=== PATIENT | male | born 1955 | race Caucasian/White ===

== ENCOUNTER → 2016-12-17 | Outpatient (REF) | payer OTHER ==
[2016-12-17 13:59] LABS: SQUAMOUS EPITHELIAL CELL URINE NONE SEEN /hpf (SMALL AMT); WBC, URINE 0-1 /hpf (0-3)
[2016-12-17 14:00] LABS: BACTERIA, URINE NONE SEEN; HYALINE CAST, URINE NONE SEEN /lpf (0-1); MICROSCOPIC EXAM PERFORMED
[2016-12-17 14:06] LABS: COMPLEMENT C4 25.3 MG/DL (10-40)
== END ==
LOC: M LAB REF 13:18
PROVIDERS: ATTEND Internal Medicine Nephrology
DX: R31.9 Hematuria, unspecified (principal); R80.9 Proteinuria, unspecified

== ENCOUNTER → 2016-12-22 | Outpatient (CLI) | payer OTHER ==
--- NOTE | 2016-12-22 14:15 | REP ---
RENAL AND BLADDER ULTRASOUND: Real-time sonographic evaluation of the kidneys is performed and demonstrates both kidneys to be normal in size and echotexture, right kidney measuring 12.5 x 7.5 x 5.3 cm and the left kidney 12.7 x 6.0 x 5.5 cm. There is no hydronephrosis bilaterally. Calcified blood vessels are seen in each kidney. There is a cyst in the lower pole of the left kidney 1.2 x 1.2 x 0.7 cm. The urinary bladder demonstrates no mass or calculus. There is impression upon the base of the bladder by an enlarged prostate which measures 5.2 x 4.0 x 6.1 cm, total volume 65.8 mL. The bladder volume prior to voiding is 378 mL, postvoid residual is 25 mL with postvoid residual 7% of the original volume. There are bilateral ureteral jets in the urinary bladder with Doppler color evaluation. IMPRESSION: No hydronephrosis. Small cyst lower pole, left kidney. Enlarged prostate. Mild postvoid residual of the urinary bladder after voiding without other significant finding. Signed by Roberto Newell MD 12/22/2016 03:33 P
== END ==
LOC: M RAD 12:57
PROVIDERS: ATTEND Internal Medicine Nephrology
DX: R31.9 Hematuria, unspecified (principal); R80.9 Proteinuria, unspecified; I10 Essential (primary) hypertension; N13.30 Unspecified hydronephrosis; N28.1 Cyst of kidney, acquired

== ENCOUNTER → 2017-02-04 | Outpatient (REF) | payer OTHER | LOC: M SMT 13:04 | PROVIDERS: ATTEND Nurse Practitioner Women's Health | DX: R31.29 Other microscopic hematuria (principal) ==

== ENCOUNTER → 2017-04-05 | Outpatient (CLI) | payer OTHER ==
[~2017-04-05] MED LIST: FLOM5CAP PO; LISI20TA PO; MULTCAP12 PO; NORCOTAB PO; PROS5TAB PO; SIMV20TA2 PO
[2017-04-05 07:47] LABS: MEAN CORPUSCULAR HEMOGLOBIN 31.9 pg (27.0-33.0); MEAN CORPUSCULAR HGB CONC 33.6 g/dl (32.0-36.5); RED CELL DISTRIBUTION WIDTH 13.1 % (11.5-14.5); WHITE BLOOD COUNT 5.7 K/mm3 (4.0-10.0)
[2017-04-05 08:14] LABS: ANION GAP 7 MEQ/L (8-16); BLOOD UREA NITROGEN 18 MG/DL (7-18); CALCIUM LEVEL 8.8 MG/DL (8.8-10.2); CARBON DIOXIDE LEVEL 25 MEQ/L (21-32); CHLORIDE LEVEL 106 MEQ/L (98-107); CREATININE FOR GFR 0.89 MG/DL (0.70-1.30); GLOMERULAR FILTRATION RATE > 60.0 (>49); GLUCOSE, FASTING 109 MG/DL (80-110); POTASSIUM SERUM 4.2 MEQ/L (3.5-5.1); SODIUM LEVEL 138 MEQ/L (136-145)
== END ==
LOC: M LAB 07:10
PROVIDERS: ATTEND Specialist
DX: R31.29 Other microscopic hematuria (principal)

== ENCOUNTER → 2017-04-15 | Outpatient (CLI) | payer OTHER ==
--- NOTE | 2017-04-15 19:40 | ECGEPIP ---
Stationary ECG Study [facility] - ED Test Date: 2017-04-15 Pat Name: JENNIFER MCBRIDE Department: Room: OP Gender: M [employer]: MANOJ : 1955 Requested By: Order Number: [id number] Reading MD: Isaiah Palumbo Measurements Intervals [place] Rate: 67 P: 68 MN: 173 QRS: 78 QRSD: 101 T: 31 QT: 392 QTc: 416 Interpretive Statements SINUS RHYTHM Electronically Signed On 04-15-2017 19:39:51 EDT by Isaiah Palumbo
--- NOTE | 2017-04-16 06:32 | REP ---
Clinical: Primary hypertension . Comparison: None . Technique: PA and lateral. Findings: The mediastinum and cardiac silhouette are normal. The lung cornell are clear and without acute consolidation, effusion, or pneumothorax. The skeletal structures are intact and normal. Impression: 1. No acute cardiopulmonary process. Signed by Grant Solis MD 04/16/2017 03:23 A
== END ==
LOC: M EKG 11:15
PROVIDERS: ATTEND Family Medicine
DX: J44.9 Chronic obstructive pulmonary disease, unspecified (principal); I10 Essential (primary) hypertension

== ENCOUNTER → 2017-04-27 | Day surgery (SDC) | payer OTHER ==
[~2017-04-27] VITALS: Ht 180.3 cm; Wt 113.4 kg
[~2017-04-27] MED LIST changes: +LIDOCAINE 1% SDV 5 ML VIAL SQ ONE; +LIDOCAINE 2% 5ML JELLY UROJET As Ordered ONE; +LIDOCAINE 2% INJ 100 MG/5 ML SDV (FOR ANES.) As Ordered ONE; +LIDOCAINE 2% MDV 20 ML VIAL As Ordered ONE; +LR 1,000 ML IV SCH; +MIDAZOLAM INJ 2 MG/2 ML VIAL (J2250) As Ordered ONE; +ONDANSETRON 4MG/2ML VIAL (J2405) As Ordered ONE; +PROPOFOL 200 MG/20 ML VIAL As Ordered ONE; +TRIMETHOPRIM/SULFAMETHOXAZOLE 80 MG in D5W 100 ML IV SCH; +dexameTHASONE 4 MG/ML 1ML VIAL (J1100) As Ordered ONE; +fentaNYL 100 MCG/2 ML INJECTION (J3010) As Ordered ONE
[2017-04-27 12:29] VITALS: BP 146/88
--- NOTE | 2017-04-28 11:18 | RO ---
DATE OF PROCEDURE: 04/27/2017 PREOPERATIVE DIAGNOSIS: Bladder lesion. POSTOPERATIVE DIAGNOSIS: Bladder lesion. PROCEDURES: Cystoscopy, bladder biopsy, and fulguration. SURGEON: Dr. Humaira Davila PYTHON DJANGO DEVELOPER: ANESTHESIA: Local with a little intravenous (IV) sedation. MEDICATIONS: Bactrim 80 mg IV. SPECIMENS: Bladder lesion. INDICATIONS FOR PROCEDURE: The patient is a 61-year-old gentleman with findings of an atypical cytology, persistent microscopic hematuria, history of smoking, and a bladder lesion seen on cystoscopy, which appeared to be slightly polypoid in nature. After discussing all different options, alternatives, risks, and benefits, it was decided to bring him to the operating room to have this biopsied. Informed consent was obtained in both verbal and written form. DESCRIPTION OF PROCEDURE: The patient was brought into the operating room. Thromboembolic deterrent (FELIX) stockings and sequential compression devices were in place, and preoperative antibiotics had been given. Next, he was placed in the lithotomy position, and careful attention was paid that his pressure points were well padded and protected. He was prepped and draped in the usual fashion. A mixture of lidocaine jelly and 25 mL of 2% lidocaine was placed in his bladder through a red rubber catheter for local anesthesia. Next, a 21-Tunisian cystoscope was inserted. The urethra was noted to be open without any evidence of lesions or strictures. The prostatic urethra showed no significant obstruction, although there was a slightly high bladder neck. Upon entering the bladder, both ureteral orifices were seen. The polypoid lesion was seen just proximal to the left ureteral orifice, and this was biopsied and then fulgurated. There was no other erythematous patches, lesions, stones, or abnormalities throughout the bladder. The patient tolerated the procedure well and was returned to the recovery room in stable condition.
== END | disposition home or self-care (01) ==
LOC: M SDC 09:43
PROVIDERS: ATTEND Specialist
DX: D30.3 Benign neoplasm of bladder (principal); I12.9 Hypertensive chronic kidney disease with stage 1 through stage 4 chronic kidney disease, or unspecified chronic kidney disease; R19.7 Diarrhea, unspecified; N18.1 Chronic kidney disease, stage 1; E78.00 Pure hypercholesterolemia, unspecified; R06.02 Shortness of breath; M12.58 Traumatic arthropathy, other specified site; R06.83 Snoring; N40.0 Benign prostatic hyperplasia without lower urinary tract symptoms; Z88.0 Allergy status to penicillin; Z79.899 Other long term (current) drug therapy
CPT/HCPCS: 52204; 52214; 88305; 96374; J1100; J2250; J2405; J3010

== ENCOUNTER → 2017-06-04 | Outpatient (CLI) | payer OTHER ==
[~2017-06-04] MED LIST changes: +ACETAMINOPHEN TAB 650MG DOSE (2X325MG) PO PRN; +BISACODYL 10 MG SUPP PR PRN; +DOCUSATE SODIUM 100 MG CAP PO SCH; +ISOVUE-370 76% 100ML VIAL (Q9967) As Ordered ONE; -LIDOCAINE 1% SDV 5 ML VIAL SQ ONE; -LIDOCAINE 2% 5ML JELLY UROJET As Ordered ONE; -LIDOCAINE 2% INJ 100 MG/5 ML SDV (FOR ANES.) As Ordered ONE; -LIDOCAINE 2% MDV 20 ML VIAL As Ordered ONE; -LR 1,000 ML IV SCH; -MIDAZOLAM INJ 2 MG/2 ML VIAL (J2250) As Ordered ONE; +MOM 30ML SUSPENSION UDC PO PRN; +NORCO, ANEXSIA 5/325MG TABLET (HYDROcodone/ACETAMINOPHEN) PO PRN; +NS 1,000 ML IV SCH; -ONDANSETRON 4MG/2ML VIAL (J2405) As Ordered ONE; +PANTOPRAZOLE 40MG TAB (PROTONIX) PO SCH; -PROPOFOL 200 MG/20 ML VIAL As Ordered ONE; +SENOKOT S TAB PO SCH; -TRIMETHOPRIM/SULFAMETHOXAZOLE 80 MG in D5W 100 ML IV SCH; -dexameTHASONE 4 MG/ML 1ML VIAL (J1100) As Ordered ONE; -fentaNYL 100 MCG/2 ML INJECTION (J3010) As Ordered ONE
--- NOTE | 2017-06-04 15:36 | REP ---
Clinical: Hematuria. Technique: Axial precontrast, conscious enhanced, and delayed images of the abdomen and pelvis using 100 ml Isovue 370 intravenous contrast material with coronal and sagittal re-formations. Findings: The urinary tract system demonstrates chronic perinephric stranding and renovascular calcifications along with 3 mm nonobstructing left renal calculus. There is no evidence for renal cyst, mass, hydroureteronephrosis or obstructing ureteral calculus. The bilateral ureters and the bladder appear normal. The prostate gland is enlarged and measures approximately 6 cm transverse diameter. There is a partially thrombosed infrarenal abdominal aortic aneurysm measuring 8.3 x 7.7 cm maximal transverse diameter and approximately 11.5 cm craniocaudal length terminating at the level of the bifurcation to common iliac arteries. The patent aortic aneurysmal lumen measures 6.6 x 6.2 cm maximal diameter. There is no evidence for dissection or periaortic stranding. Moderate atherosclerotic changes of the aorta and iliac arteries also identified as well as mild aneurysmal dilatation to the left common femoral artery measuring 2.3 cm diameter. Liver, spleen, pancreas, gallbladder, and bilateral adrenal glands are normal. The enteric system is without obstruction or acute inflammatory process. Scattered colonic diverticulosis noted without acute diverticulitis. Small fat containing bilateral inguinal hernias identified. No free air. No ascites. No significant adenopathy. No obvious mass. Surrounding musculoskeletal structures demonstrate age-related degenerative changes. Lung bases demonstrate minimal chronic basilar changes. Impression: 1. Large abdominal aortic aneurysm as described above warrants consultation and followup. 2. Urinary tract system with 3 mm nonobstructing left renal calculus and chronic age-related changes. 3. Enlarged prostate gland. Signed by Grant Solis MD 06/04/2017 03:28 P
== END ==
LOC: M RAD 12:38
PROVIDERS: ATTEND Internal Medicine Nephrology
DX: N18.1 Chronic kidney disease, stage 1 (principal); R31.9 Hematuria, unspecified; N40.1 Benign prostatic hyperplasia with lower urinary tract symptoms; N20.0 Calculus of kidney; I71.4 Abdominal aortic aneurysm, without rupture
CPT/HCPCS: 74178; Q9967

== ENCOUNTER 2017-06-16 13:15 | Inpatient (IN) | payer OTHER ==
[~2017-06-16] VITALS: Ht 180.3 cm; Wt 117.6 kg
[~2017-06-16 13:15] MED LIST changes: -ACETAMINOPHEN TAB 650MG DOSE (2X325MG) PO PRN; -BISACODYL 10 MG SUPP PR PRN; -DOCUSATE SODIUM 100 MG CAP PO SCH; -ISOVUE-370 76% 100ML VIAL (Q9967) As Ordered ONE; -MOM 30ML SUSPENSION UDC PO PRN; -NORCO, ANEXSIA 5/325MG TABLET (HYDROcodone/ACETAMINOPHEN) PO PRN; -NORCOTAB PO; -NS 1,000 ML IV SCH; -PANTOPRAZOLE 40MG TAB (PROTONIX) PO SCH; -SENOKOT S TAB PO SCH
[2017-06-16 14:25] VITALS: BP 159/104
[2017-06-16 14:53] LABS: BASO % 0.6 % (0.0-1.0); EOS # 0.1 K/mm3 (0.0-0.50); EOS % 1.4 % (0.0-3.0); LARGE UNSTAINED CELL # 0.2 K/mm3 (0.0-0.4); LARGE UNSTAINED CELL % 3.1 % (0.0-4.0); LYMPH # 2.1 K/mm3 (1.5-4.5); LYMPH % 30.4 % (24.0-44.0); MEAN CORPUSCULAR HEMOGLOBIN 32.3 pg (27.0-33.0); MEAN CORPUSCULAR HGB CONC 35.3 g/dl (32.0-36.5); MEAN CORPUSCULAR VOLUME 91.6 fl (80.0-96.0); MONO # 0.8 K/mm3 (0.0-0.8); MONO % 10.7 % (0.0-5.0); NEUTROPHILS # 3.8 K/mm3 (1.8-7.7); NEUTROPHILS % 53.7 % (36.0-66.0); PLATELET COUNT, AUTOMATED 286 k/mm3 (150-450); RED CELL DISTRIBUTION WIDTH 12.9 % (11.5-14.5)
[2017-06-16 14:58] LABS: INR 0.95
[2017-06-16 15:03] LABS: ANION GAP 7 MEQ/L (8-16); BLOOD UREA NITROGEN 17 MG/DL (7-18); CALCIUM LEVEL 9.3 MG/DL (8.8-10.2); CARBON DIOXIDE LEVEL 26 MEQ/L (21-32); CHLORIDE LEVEL 107 MEQ/L (98-107); CREATININE FOR GFR 0.86 MG/DL (0.70-1.30); GLOMERULAR FILTRATION RATE > 60.0 (>49); GLUCOSE, FASTING 82 MG/DL (80-110); POTASSIUM SERUM 3.8 MEQ/L (3.5-5.1); SODIUM LEVEL 140 MEQ/L (136-145)
--- NOTE | 2017-06-16 16:59 | ECGEPIP ---
Stationary ECG Study [facility] Test Date: 2017-06-16 Pat Name: JENNIFER MCBRIDE Department: Room: [place] [address] Gender: M Round Boner: DARVIN : 1955 Requested By: Yandel Nunn Order Number: [id number] Reading MD: Lorenzo Black Measurements Intervals [place] Rate: 75 P: 55 CA: 175 QRS: 66 QRSD: 110 T: 31 QT: 377 QTc: 423 Interpretive Statements SINUS RHYTHM Intraventricular conduction delay Electronically Signed On 06-16-2017 16:59:53 EDT by Lorenzo Black
[2017-06-16 19:40] VITALS: BP 141/88
[2017-06-16] MEDS: NS 1,000 ML IV SCH (21:54)
[2017-06-16] MEDS: SIMVASTATIN 20 MG TAB PO SCH (21:54)
[2017-06-16] MEDS: TAMSULOSIN 0.4 MG CAP PO SCH (21:54)
[2017-06-16] MEDS: FINASTERIDE 5 MG TAB PO SCH (21:54)
[2017-06-16 22:00] VITALS: BP 143/78
--- NOTE | 2017-06-16 22:09 | HPEPDOC ---
General Date of Admission Jun 16, 2017 at 14:14 Primary Care Physician: David Chen Attending Physician: Yandel Glover MD Chief Complaint The patient is a 61-year-old male admitted with an 8 cm Abdominal Aortic Aneurysm. Source: Patient Exam Limitations: No limitations History of Present Illness Patient is a 61-year-old male who underwent an abdominal CT scan secondary to hematuria and was found to have an 8 cm abdominal aortic aneurysm.Patient denies rest pain, TIAs, amaurosis fugax, paralysis or paresis of the extremity, nausea, fevers, chills, vomiting, chest pain, or shortness of breath. Home Medications Scheduled (Lisinopril/Hydrochlorothi 20-12.5 mg) 1 Tab Tab, 1 TAB PO QHS, (Reported) (Multi For Him) 1 Cap Cap, 1 CAP PO QHS, (Reported) Finasteride (Proscar) 5 Mg Tab, 5 MG PO QHS, (Reported) Simvastatin (Simvastatin) 20 Mg Tab, 20 MG PO QHS, (Reported) Tamsulosin Hydrochloride (Flomax) 0.4 Mg Cap, 0.4 MG PO QHS, (Reported) Allergies Coded Allergies: Penicillins (Verified Allergy, Mild, RASH, 04/13/17) Past Medical History Medical History Hypertension Stage I renal disease 8 cm abdominal aortic aneurysm Hypercholesterolemia Surgical History Bladder biopsy Sinus surgery Family History Significant Family History: Heart disease, Hypertension Father has a history of coronary artery disease Mother has a history of hypertension and breast cancer Social History * Smoker: current smoker, greater than 1 pack/day Alcohol: Denies Drugs: denies Recent Travel/Sick Contacts: Denies: Recent travel, Recent sick contacts Psychosocial History: No pertinent psych hx Review of Symptoms Constitutional: Denies: Chills, Fever, Malaise, Night Sweats, Weakness, Fatigue , Weight Loss, Lethargy, Other Eyes: Denies: Pain, Vision change, Conjunctivae inflammation, Eyelid inflammation, Redness, Other ENT: Denies: Head Aches, Ear Pain, Dysphagia, Sinus Congestion, Post Nasal Drip , Sore Throat, Epistaxis, Other Symptoms Skin: Denies: Rash, Lesions, Jaundice, Bruising, Itching, Dry, Breakdown, Nail Changes, Other Pulmonary: Denies: Dyspnea, Cough, Pleuritic Chest Pain, Other Symptoms Cardiovascular: Denies: Chest Pain, Palpitations, Orthopnea, Paroxysmal Noc. Dyspnea, Edema, Lt Headedness, Other Symptoms Gastrointestinal: Denies: Nausea, Vomiting, Abdominal Pain, Diarrhea, Constipation, Melena, Hematochezia, Other Symptoms Genitourinary: Reports: Dysuria, Frequency, Incontinence, Hematuria, Retention , Other Symptoms Hematologic: Denies: Bruising, Bleeding Excessively, Petecchia, Purpura, Enlarged Lymph Nodes, Other Hematologic Endocrine: Denies: Polydipsia, Polyphagia, Polyuria, Heat Intolerance, Cold Intolerance, Other Endocrine Sx Musculoskeletal: Denies: Neck Pain, Back Pain, Shoulder Pain, Arm Pain, Hand Pain, Leg Pain, Foot Pain, Joint Pain, Muscle Pain, Spasms, Other Symptoms Neurological: Denies: Weakness, Numbness, Incoordination, Change in speech, Confusion, Seizures, Other Symptoms Psych: Denies: Mood Normal, Anxiety, Depression, Memory Issues, Thoughts of Self Harm, Anger, Thoughts of Harming Other, Other Psych Physical Examination General Exam: Positive: Alert, Cooperative, No Acute Distress Eye Exam: Positive: PERRLA, Conjunctiva & lids normal, EOMI ENT Exam: Positive: Atraumatic, Mucous membr. moist/pink, Pharynx Normal, Tongue Midline, Nares Patent, Pinna Normal Neck Exam: Positive: Supple, +2 carotid pulse wo bruit Chest Exam: Positive: Clear to auscultation, Normal air movement Heart Exam: Positive: Rate Normal, Regular Rhythm Telemetry: Positive: No significant arrhythmia Abdomen Exam: Positive: Normal bowel sounds, Soft, Negative: BS Hyperactive, BS Hypoactive, Tenderness, Hepatospenomegaly, Mass , Hernia, Other Extremity Exam: Negative: Clubbing, Cyanosis, Edema, Normal pulses, Tenderness , Swelling, Other Skin Exam: Positive: Nl turgor and temperature, Negative: Rash, Breakdown, Lesion, Pruritus, Other skin issue Neuro Exam: Positive: Normal Gait, Normal Speech, Strength at 5/5 X4 ext, Normal Tone, Sensation Intact, Cranial Nerves 3-12 NL, Reflexes 2+ Psych Exam: Positive: Mental status NL, Mood NL, Oriented x 3 Vital Signs Vital Signs Date Time Temp Pulse Resp B/P (MAP) Pulse Ox O2 Delivery O2 Flow Rate FiO2 06/16/17 19:40 98.2 77 20 141/88 (105) 94 Room Air Laboratory Data Labs 24H Laboratory Tests 2 06/16/17 14:32: White Blood Count 7.0, Red Blood Count 4.83, Hemoglobin 15.6, Hematocrit 44.3, Mean Corpuscular Volume 91.6, Mean Corpuscular Hemoglobin 32.3, Mean Corpuscular Hemoglobin Concent 35.3, Red Cell Distribution Width 12.9, Platelet Count 286, Neutrophils (%) (Auto) 53.7, Lymphocytes (%) (Auto) 30.4, Monocytes ( %) (Auto) 10.7H, Eosinophils (%) (Auto) 1.4, Basophils (%) (Auto) 0.6, Neutrophils # (Auto) 3.8, Lymphocytes # (Auto) 2.1, Monocytes # (Auto) 0.8, Eosinophils # (Auto) 0.1, Basophils # (Auto) 0.0, Large Unclassified Cells % 3.1 , Large Unclassified Cells # 0.2, Prothrombin Time 12.8, Prothromb Time International Ratio 0.95, Activated Partial Thromboplast Time 35.2, Anion Gap 7L , Glomerular Filtration Rate > 60.0, Blood Urea Nitrogen 17, Creatinine 0.86, Sodium Level 140, Potassium Level 3.8, Chloride Level 107, Carbon Dioxide Level 26, Calcium Level 9.3 CBC/BMP Laboratory Tests 06/16/17 14:32 Red Blood Count 4.83, Mean Corpuscular Volume 91.6, Mean Corpuscular Hemoglobin 32.3, Mean Corpuscular Hemoglobin Concent 35.3, Red Cell Distribution Width 12.9 , Neutrophils (%) (Auto) 53.7, Lymphocytes (%) (Auto) 30.4, Monocytes (%) (Auto ) 10.7 H, Eosinophils (%) (Auto) 1.4, Basophils (%) (Auto) 0.6, Neutrophils # ( Auto) 3.8, Lymphocytes # (Auto) 2.1, Monocytes # (Auto) 0.8, Eosinophils # (Auto ) 0.1, Basophils # (Auto) 0.0, Calcium Level 9.3 Assessment/Plan Patient is a 61-year-old male with an 8 cm abdominal aortic aneurysm which is amenable to endovascular repair. Patient will be admitted to the hospital and undergone endovascular abdominal aortic angina repair. Risks benefits and alternative treatment options were discussed with the patient. Benefits including but were not limited to the exclusion of the aorta with prevention of rupture and . Alternative treatment options including but were not limited to open abdominal aortic aneurysm repair, and no intervention. Risks included but were not limited to infection, bleeding, renal failure requiring hemodialysis, possible need for conversion to open abdominal aortic aneurysm repair, cerebrovascular accident, myocardial infarction, pulmonary embolus, deep venous thrombosis, loss of limb, loss of life and poor outcome. Patient's questions were answered. Patient voices understanding of these risks benefits and alternative treatment options. Patient accepts these risks and agrees to proceed with an endovascular abdominal aortic aneurysm repair. Problems (1) Aortic aneurysm, abdominal Status: Chronic Discussed With: Patient (2) Iliac artery aneurysm, bilateral Status: Chronic Discussed With: Patient (3) Aortic aneurysm without rupture Status: Chronic Discussed With: Patient Plan / VTE VTE Prophylaxis Ordered?: Yes Plan Plan Patient will undergo an abdominal aortic aneurysm repair with an endovascular repair. IVF: Initiate Diet: Make NPO Activity: Continue Current Diagnostics: Check Labs, EKG Anticipated Discharge: Home Yandel Glover MD Jun 16, 2017 22:09
[2017-06-17] VITALS (9 sets, daily range): BP systolic 120–168; BP diastolic 77–100
[2017-06-17] MEDS ORDERED: cloNIDine 0.1 MG TAB PO ONE (06:15)
[2017-06-17] MEDS: NS 1,000 ML IV SCH ×3 (07:49→22:54)
[2017-06-17] MEDS ORDERED: fentaNYL 100 MCG/2 ML INJECTION (J3010) As Ordered ONE ×3 (12:10→16:37)
[2017-06-17] MEDS ORDERED: MIDAZOLAM INJ 2 MG/2 ML VIAL (J2250) As Ordered ONE (12:10)
[2017-06-17] MEDS ORDERED: VANCOMYCIN 1000 MG/20 ML VIAL (J3370) As Ordered ONE (12:23)
[2017-06-17] MEDS ORDERED: ceFAZolin 1GM INJ (J0690) As Ordered ONE (12:23)
[2017-06-17] MEDS ORDERED: METHYLENE BLUE 0.5% (5MG/ML) 10 ML AMP (PROVAYBLUE)(Q9968 PER 1MG) As Ordered ONE (12:23)
[2017-06-17] MEDS ORDERED: HEPARIN SOD (PORCINE) 5000 UNITS/ML VIAL As Ordered ONE ×2 (12:23→14:19)
[2017-06-17] MEDS ORDERED: ISOVUE-300 61% 50ML VIAL (Q9967) As Ordered ONE ×2 (12:25→15:31)
[2017-06-17] MEDS ORDERED: CLINDAMYCIN INJ 900MG/6ML VIAL As Ordered ONE (12:41)
[2017-06-17] MEDS ORDERED: ONDANSETRON 4MG/2ML VIAL (J2405) As Ordered ONE (13:55)
[2017-06-17] MEDS ORDERED: ROCURONIUM BROMIDE 50 MG/5 ML VIAL/SYRINGE As Ordered ONE (13:55)
[2017-06-17] MEDS ORDERED: PROPOFOL 200 MG/20 ML VIAL As Ordered ONE (13:55)
[2017-06-17] MEDS ORDERED: PHENYLephrine HCL 500 MCG/5 ML (100MCG/ML) SYRINGE (J2370) As Ordered ONE (13:55)
[2017-06-17] MEDS ORDERED: dexameTHASONE 4 MG/ML 1ML VIAL (J1100) As Ordered ONE (13:55)
[2017-06-17] MEDS ORDERED: LIDOCAINE 2% INJ 100 MG/5 ML SDV (FOR ANES.) As Ordered ONE (13:55)
[2017-06-17] MEDS ORDERED: CLINDAMYCIN 900 MG/50 ML PREMIX BAG As Ordered ONE (13:56)
[2017-06-17] MEDS ORDERED: PROTAMINE SULF INJ 50 MG/5 ML VIAL (J2720) As Ordered ONE ×2 (14:19→16:03)
[2017-06-17] MEDS ORDERED: GLYCOPYRROLATE INJ 0.2 MG/ML 2 ML VIAL As Ordered ONE (16:02)
[2017-06-17] MEDS ORDERED: NEOSTIGMINE 1MG/ML 5 ML SYRINGE (J2710) As Ordered ONE (16:04)
[2017-06-17] MEDS ORDERED: ONDANSETRON 4MG/2ML VIAL (J2405) IV PRN ×2 (17:00→17:15)
[2017-06-17] MEDS ORDERED: fentaNYL 100 MCG/2 ML INJECTION (J3010) IV PRN ×2 (17:00→17:15)
[2017-06-17] MEDS ORDERED: LR 1,000 ML IV SCH ×2 (17:00→17:15)
[2017-06-17] MEDS: NORCO, ANEXSIA 5/325MG TABLET (HYDROcodone/ACETAMINOPHEN) PO PRN (18:43)
[2017-06-17] MEDS: FINASTERIDE 5 MG TAB PO SCH (20:40)
[2017-06-17] MEDS: SIMVASTATIN 20 MG TAB PO SCH (20:40)
[2017-06-17] MEDS: TAMSULOSIN 0.4 MG CAP PO SCH (20:40)
[2017-06-18 02:00] VITALS: BP 124/84
[2017-06-18 06:00] VITALS: BP 123/78
[2017-06-18] MEDS: NORCO, ANEXSIA 5/325MG TABLET (HYDROcodone/ACETAMINOPHEN) PO PRN (07:48)
--- NOTE | 2017-06-18 09:42 | ECHO ---
DATE OF PROCEDURE: 06/17/2017 DATE OF : 1955 AGE: 61 REFERRING PROVIDER: Dr. Yandel Glover. PATIENT LOCATION: Room 4236. REASON FOR ECHOCARDIOGRAM: Aortic aneurysm. 2D MEASUREMENTS: IVS: 1.7 cm LV: 4.3 cm LVPW: 1.5 cm LA: 4.0 cm Aorta: 4.0 cm IVC: 1.2 cm DOPPLER MEASUREMENTS: Peak velocity across the aortic valve: 1.1 m/s Peak velocity across the LVOT: 0.93 m/s Mitral E: 0.69 Mitral A: 0.99 Ratio 0.7 Maximum tricuspid valve velocity: 2.5 m/s 2D COMMENTS: 1. Moderately increased left ventricular wall thickness with normal left ventricular size and a normal global left ventricular systolic function. The estimated global left ventricular systolic ejection fraction is 60% to 65%. 2. Borderline enlarged left atrium. Normal right atrium and right ventricle. 3. The atrial septum appeared to be normal without evidence of defect or shunt. 4. Mildly enlarged aortic root at 4.0 cm. 5. No pericardial effusion seen. 6. Mildly calcified aortic valve with normal leaflet excursion. Normal mitral valve, tricuspid valve. The pulmonic valve and proximal pulmonary artery branches were not well visualized. 7. The inferior vena cava was normal in size, central venous pressure is most likely normal. DOPPLER: It detects mild tricuspid regurgitation. The calculated pulmonary artery systolic pressure varies between 30 to 40 mmHg. IMPRESSION: 1. Normal global left ventricular systolic function with probably moderate concentric left ventricular hypertrophy. There are some features of left ventricular diastolic dysfunction, grade 1. 2. Aortic valve sclerosis without stenosis or aortic regurgitation. 3. Borderline enlarged left atrium, no significant mitral regurgitation. This is probably related to underlying left ventricular diastolic dysfunction. 4. Mild tricuspid regurgitation with mild pulmonary hypertension. 5. Dilated aortic root at 4.0 cm. No aortic stenosis or aortic regurgitation detected in this transthoracic echocardiogram. cc: Yandel Glover MD [facility]
[2017-06-18 10:00] VITALS: BP 132/75
[2017-06-18] MEDS ORDERED: NORCOTAB PO (12:11)
--- NOTE | 2017-06-18 12:22 | DS.PDOC ---
Discharge Summary General Date of Admission Jun 16, 2017 at 14:14 Date of Discharge 06/18/2017 Attending Physician: Yandel Glover MD Discharge Summary PROCEDURES PERFORMED DURING STAY: Endovascular abdominal aortic aneurysm repair. ADMITTING DIAGNOSES: 1. 8 cm abdominal aortic aneurysm. 2. Benign prostatic hypertrophy. 3. Chronic renal insufficiency stage I. 4. Hypertension 5. Tobacco abuse 6. Hematuria DISCHARGE DIAGNOSES: 1. 8 cm abdominal aortic aneurysm. 2. Benign prostatic hypertrophy. 3. Chronic renal insufficiency stage I. 4. Hypertension 5. Tobacco abuse 6. Hematuria COMPLICATIONS/CHIEF COMPLAINT: 8 cm infrarenal abdominal Aortic Aneurysm. HISTORY OF PRESENT ILLNESS: She is a 61-year-old male who was found to have an 8 cm abdominal aortic aneurysm while undergoing a CT scan for hematuria. Patient was evaluated and was a good candidate for an endovascular repair and chose to undergo an endovascular abdominal aortic aneurysm repair. HOSPITAL COURSE: Patient was admitted to the hospital underwent preoperative hydration and laboratory evaluation and then was taken to the operating room and underwent an endovascular abdominal aortic aneurysm repair without complication. Postop day 1 the patient was stable urinating without difficulty pain was well-controlled and was able to be discharged home. DISCHARGE MEDICATIONS: Please see below. ALLERGIES: Please see below. PHYSICAL EXAMINATION ON DISCHARGE: VITAL SIGNS: Please see below. GENERAL: Lying in bed awake alert oriented and with no apparent distress HEENT: Normal NECK: Supple with no carotid bruits CARDIOVASCULAR EXAMINATION: Regular rate and rhythm RESPIRATORY EXAMINATION: Clear to auscultation bilaterally ABDOMINAL EXAMINATION: Soft nontender nondistended with no palpable pulsatile masses EXTREMITIES: Warm well perfused with palpable posterior tibial and dorsalis pedis arteries SKIN: Warm well perfused NEUROLOGICAL EXAMINATION: Awake alert oriented 3 with no focal deficits PSYCHIATRIC EXAMINATION: Normal LABORATORY DATA: Please see below. IMAGIN-D echo PROGNOSIS: Excellent ACTIVITY: As tolerated with no heavy lifting of more than 10 pounds and the patient should not return to work until seen and cleared by me. DIET: Low-fat low-cholesterol. DISCHARGE PLAN: Discharge to home DISPOSITION: Discharged to home. DISCHARGE INSTRUCTIONS: 1. No smoking! 2. No heavy lifting of more than 10 pounds and do not return to work until seen and cleared by myself. 3. No smoking! ITEMS TO FOLLOWUP ON ON OUTPATIENT: 1. Tobacco abuse. DISCHARGE CONDITION: Stable. TIME SPENT ON DISCHARGE: Greater than 45 minutes. Vital Signs/I&Os Vital Signs Date Time Temp Pulse Resp B/P (MAP) Pulse Ox O2 Delivery O2 Flow Rate FiO2 06/18/17 10:00 98.9 72 18 132/75 (94) 95 Room Air 06/18/17 07:30 2.0 I&O- Last 24 Hours up to 6 AM 06/18/17 06:00 Intake Total 6320 ml Output Total 1900 ml Balance 4420 ml Discharge Medications Scheduled (Lisinopril/Hydrochlorothi 20-12.5 mg) 1 Tab Tab, 1 TAB PO QHS, (Reported) (Multi For Him) 1 Cap Cap, 1 CAP PO QHS, (Reported) Finasteride (Proscar) 5 Mg Tab, 5 MG PO QHS, (Reported) Simvastatin (Simvastatin) 20 Mg Tab, 20 MG PO QHS, (Reported) Tamsulosin Hydrochloride (Flomax) 0.4 Mg Cap, 0.4 MG PO QHS, (Reported) Scheduled PRN Acetaminophen/Hydrocodone ([place], Anexsia 5/325) 1 Tab Tab, 1 TAB PO Q4HP PRN for MILD/MODERATE PAIN (PS 1-7) Allergies Coded Allergies: Penicillins (Verified Allergy, Mild, RASH, 04/13/17) Yandel Glover MD Jun 18, 2017 12:22
--- NOTE | 2017-07-14 18:58 | RO ---
DATE OF PROCEDURE: 06/17/2017 PREPROCEDURE DIAGNOSES: 8 cm abdominal aortic aneurysm. Bilateral common iliac artery aneurysm. POSTPROCEDURE DIAGNOSES: 8 cm abdominal aortic aneurysm. Bilateral common iliac artery aneurysm. OPERATIVE PROCEDURE: Endovascular abdominal aortic aneurysm repair with a 32 x 14 x 103 bifurcated Endurant endograft left iliac limb extension with a 16-28 x 124 Endurant flared iliac limb. Right iliac limb extension with a 16-28 x 156 Endurant flared iliac limb. SURGEON: Jorgito Glover MD LOOM TUNER: ANESTHESIA: General endotracheal. ESTIMATED BLOOD LOSS: 200 mL IV FLUIDS: 1900 mL HEPARIN: 23427 units. COMPLICATIONS: None DRAINS: None SPECIMENS: None INDICATION: The patient is a 61-year-old male who was evaluated for hematuria with a CT scan and found to have an 8 cm abdominal aortic aneurysm. The patient is a good candidate for endovascular repair and will undergo an endovascular abdominal aortic aneurysm repair with possible open repair. Risks, benefits and alternative treatment options were discussed with the patient. DESCRIPTION OF PROCEDURE: The patient was taken to the operating room, placed supine on the operating room table and bilateral open femoral exposures were performed. Catheters and wires were then placed into the femoral arteries bilaterally and angiogram was performed showing the position of the renal arteries. After which a bifurcated 32 x 14 x 103 graft was placed below the renal arteries under serial angiograms. The contralateral limb was cannulated and then the left iliac limb was extended with a 16-28 x 124 flared Endurant iliac limb. The right iliac limb was extended with a 16-28 x 156 flared Endurant iliac limb. The graft in both limbs were then angioplastied with the Reliant compliant balloon, after which a completion angiogram showed the renal arteries to be widely patent with good flow through the graft into both iliac limbs and into the external and internal iliac arteries. The common femoral arteries were then closed using #6-0 Prolene suture in running continuous fashion. The groin incisions were closed using #2-0 Vicryl to approximate the deeper layer and #3-0 Monocryl to approximate the skin in a running subcuticular fashion. Steri-Strips and dressings were applied. The patient tolerated the procedure well. All instrument, sponge and needle counts were correct at the end of the case. There were There were no complications. Dr. Glover was present for and directed the entire case. The patient was transferred to the recovery room, awake, alert, extubated and in stable condition. RADIOLOGIC SUPERVISION INTERPRETATION: The aortogram showed the renal arteries to be widely patent in the location of the aneurysm. The bifurcated graft was placed below the level of the renal arteries with serial aortograms performed to ensure infrarenal positioning, which was noted. Both iliac limbs were extended, after which the graft and both iliac limbs were angioplastied and a completion aortogram showed the renal arteries to be widely patent with good flow through the graft and into the iliac limbs with good filling of the external and internal iliac arteries. There were no type 1 endoleaks noted. Type 2 endoleaks were noted which were small.
== END 2017-06-18 12:55 | disposition home or self-care (01) | DRG 173 ==
LOC: M MSPAV 14:14
PROVIDERS: ADMIT Surgery Vascular Surgery; ATTEND Surgery Vascular Surgery
PROC: 04V03E6 (ICD-10-PCS; principal; 2017-06-17 07:30)
DX: I71.4 Abdominal aortic aneurysm, without rupture (principal); I72.3 Aneurysm of iliac artery; N40.0 Benign prostatic hyperplasia without lower urinary tract symptoms; I12.9 Hypertensive chronic kidney disease with stage 1 through stage 4 chronic kidney disease, or unspecified chronic kidney disease; N18.1 Chronic kidney disease, stage 1; Z79.899 Other long term (current) drug therapy; Z88.0 Allergy status to penicillin; E78.00 Pure hypercholesterolemia, unspecified; F17.210 Nicotine dependence, cigarettes, uncomplicated

== ENCOUNTER → 2017-07-14 | Outpatient (CLI) | payer OTHER ==
[~2017-07-14] MED LIST changes: +NORCOTAB PO
--- NOTE | 2017-07-14 10:22 | REP ---
Abdominal aortic sonography: History: Abdominal aortic aneurysm. Comparison study: June 04, 2017 CT study. Sonographic findings: The abdominal aorta at the level of the diaphragmatic hiatus could not be seen due to abdominal gas. At the main renal artery origin level the aorta is mildly aneurysmal measuring 3.4 x 3.3 cm in AP by transverse dimension respectively. At mid aortic level there is an 8.7 x 9.1 cm abdominal aortic aneurysm, AP by transverse dimension respectively. The aorta is aneurysmal over a 12.1 cm length. The aneurysm extends into the common iliac arteries bilaterally. These measure 2.9 x 3.4 cm in AP dimension on the right and left respectively by 3.7 and 3.4 cm and in transverse dimension. An aortobi-iliac stent is seen in place. On sagittal color Doppler interrogation of the abdominal aortic aneurysm there is Doppler flow outside of the aortoiliac stent in the aneurysm consistent with an Endoleak. The aneurysm measured seven point 8 cm in greatest AP dimension by CT and measures 8.7 cm by sonography today. Impression: Aortobi-iliac stent graft in place for aortobi-iliac aneurysm. The aneurysm appears to be a little larger than on pre-procedure CT, 8.7 cm. There is persistent Doppler flow within the aneurysm outside the stent graft. Signed by Hilario Strauss MD 07/14/2017 02:12 P
== END ==
LOC: M RAD 08:24
PROVIDERS: ATTEND Surgery Vascular Surgery
DX: I71.4 Abdominal aortic aneurysm, without rupture (principal)

== ENCOUNTER → 2017-07-29 | Outpatient (CLI) | payer OTHER ==
[~2017-07-29] MED LIST changes: +ISOVUE-370 76% 100ML VIAL (Q9967) As Ordered ONE
--- NOTE | 2017-07-29 17:53 | REP ---
CT abdomen pelvis with IV contrast, without bowel contrast: The patient has a known abdominal aortic aneurysm. Comparison is 06/04/2017. There has been interval placement of an aortobi-iliac Endo graft. There is a type 2 Endo graft lead which I believe as to contributors a left lumbar artery and the left common iliac artery. The aneurysm today maximally measures 8.5 mm transverse diameter. Measured 8.3 mm on the prior study. There is no periaortic hematoma, however, active bleeding into the thrombus within the aneurysm can be seen as contrast enhancement within nonenhanced thrombus. The visualized lung [place] are unremarkable. The hepatic parenchyma, gallbladder, pancreas and spleen are unremarkable. The adrenals, kidneys are unremarkable. Bowel and mesentery are unremarkable. There is no ascites or adenopathy. Pelvis: The pelvic bowel loops are unremarkable. Occasional colonic diverticula are identified without diverticulitis. The bladder is unremarkable. There is no ascites or adenopathy. There are bilateral fat containing inguinal hernias, unchanged. Impression: There has been interim placement of an aortobifemoral Endo graft. 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 The left iliac artery may also be contributing to this endoleak. The e aneurysm measures 8.5 cm. It measured 8.3 mm per a surgically. Signed by Roberto Jeffery MD 07/29/2017 05:44 P
== END ==
LOC: M RAD 16:48
PROVIDERS: ATTEND Surgery Vascular Surgery
DX: I71.4 Abdominal aortic aneurysm, without rupture (principal)

== ENCOUNTER → 2017-08-16 | Outpatient (CLI) | payer OTHER ==
[~2017-08-16] MED LIST changes: -ISOVUE-370 76% 100ML VIAL (Q9967) As Ordered ONE
[2017-08-16 13:02] LABS: BASO % 0.5 % (0.0-1.0); EOS # 0.1 10^3/uL (0.0-0.50); EOS % 1.4 % (0.0-3.0); IMMATURE GRANULOCYTE % 0.4 % (0-0); LYMPH # 2.3 10^3/uL (1.5-4.5); LYMPH % 28.8 % (24.0-44.0); MEAN CORPUSCULAR HEMOGLOBIN 30.4 pg (27.0-33.0); MEAN CORPUSCULAR HGB CONC 32.8 g/dl (32.0-36.5); MEAN CORPUSCULAR VOLUME 92.6 fl (80.0-96.0); MONO # 0.9 10^3/uL (0.0-0.8); MONO % 11.3 % (0.0-5.0); NEUTROPHILS # 4.6 10^3/uL (1.8-7.7); NEUTROPHILS % 57.6 % (36.0-66.0); PLATELET COUNT, AUTOMATED 279 10^3/uL (150-450); RED CELL DISTRIBUTION WIDTH 13.7 % (11.5-14.5)
[2017-08-16 13:07] LABS: ANION GAP 7 MEQ/L (8-16); BLOOD UREA NITROGEN 12 MG/DL (7-18); CALCIUM LEVEL 9.2 MG/DL (8.8-10.2); CARBON DIOXIDE LEVEL 29 MEQ/L (21-32); CHLORIDE LEVEL 102 MEQ/L (98-107); CREATININE FOR GFR 0.86 MG/DL (0.70-1.30); GLOMERULAR FILTRATION RATE > 60.0 (>49); GLUCOSE, FASTING 90 MG/DL (80-110); SODIUM LEVEL 138 MEQ/L (136-145)
== END ==
LOC: M LAB 11:37
PROVIDERS: ATTEND Surgery Vascular Surgery
DX: I71.4 Abdominal aortic aneurysm, without rupture (principal)

== ENCOUNTER → 2017-09-09 | Outpatient (CLI) | payer OTHER ==
[~2017-09-09] MED LIST changes: +ACETAMINOPHEN 325 MG TAB As Ordered ONE; +HEPARIN 1,000 UNITS/ML 10ML VIAL (FOR RADIOLOGY& DIALYSIS ONLY) As Ordered ONE; +ISOVUE-300 61% 50ML VIAL (Q9967) As Ordered ONE; +METO1TAB32 PO; +PROTAMINE SULF INJ 50 MG/5 ML VIAL (J2720) As Ordered ONE
--- NOTE | 2017-09-22 13:38 | REPIR ---
DATE OF PROCEDURE: 09/09/2017 PREPROCEDURE DIAGNOSIS: Abdominal aortic aneurysm status post endovascular repair and a leak. POSTPROCEDURE DIAGNOSIS: Abdominal aortic aneurysm status post endovascular repair and a leak. PROCEDURE: Aortogram iliofemoral angiogram. MYNX closure of the right common femoral arteriotomy. SURGEON: Dr. Jorgito Glover. REVIEW SCHEDULING COORDINATOR: Kylee Bañuelos and Richard Guzmán. ANESTHESIA: Local with 10 mL of 2% lidocaine. FLUORO TIME: 1.111 minutes. CONTRAST: 30 mL. HEPARIN: None. COMPLICATIONS: None. DRAINS: None. SPECIMENS: None. IMPLANTS: Right common femoral arterial MYNX closure device. INDICATION: The patient is a 61-year-old male who was found to have an 8.0 cm abdominal aortic aneurysm and underwent an endovascular repair, who on ultrasound followup found to have continue flow in the aneurysm sac. The patient underwent a CT scan which showed endoleak which was unable to be discerned whether it was a type 2 endoleak or coming from one of the iliac limbs. The patient will undergo an angiogram and possible angioplasty and stent. Risks, benefits and alternative treated options were discussed with the patient. Alternative treatment options included but were not limited to no interventions. DESCRIPTION OF PROCEDURE: The patient was taken to the angiography suite and placed supine on the angiography room table and the right common femoral artery was cannulated with a micropuncture needle after anesthetizing the overlying skin with 1% lidocaine. Them micropuncture wire was advanced through the micropuncture needle which was upsized to a micropuncture sheath. A Bentson wire was advanced through the micropuncture sheath which was upsized to a #5-[place] sheath. An Omni Flush catheter was placed in the aort and an aortogram was performed. The catheter was pulled down to the bifurcation of the iliac limbs and angiography performed in oblique in the AP views showing what appeared to be an endoleak coming from the left iliac limb junction. The catheters and wires were then removed and a MYNX closure device was used to close the arteriotomy in the right common femoral artery with an additional 10 minutes of adjunctive pressure applied for hemostasis. Dressings were then applied. Patient tolerated the procedure well. All instrument, sponge and needle counts were correct at the end of the case. There were no complications. Dr. Glover was present for and directed the entire case. Patient was transferred to the holding area and subsequently discharged in stable condition. RADIOLOGIC SUPERVISION INTERPRETATION: The aortogram showed the renal arteries to be widely patent with the graft in good position just below the renal arteries. There appeared to be an endoleak from the junction of the left iliac limb extension in the main body and this was communicating with lumbar vessels. A MYNX closure device was used to close the arteriotomy in the right common femoral artery.
== END | disposition home or self-care (01) ==
LOC: M IRPRO 08:34
PROVIDERS: ATTEND Surgery Vascular Surgery
DX: T82.330A Leakage of aortic (bifurcation) graft (replacement), initial encounter (principal)
CPT/HCPCS: 36200; 75630; C1760; C1769; C1887; C1894; G0269; Q9967

== ENCOUNTER 2017-09-16 11:47 | Inpatient (IN) | payer OTHER ==
[2017-09-16] MEDS: CLINDAMYCIN 900 MG in APPROPRIATE DILUENT 1 EA IV (12:00)
[2017-09-16 12:09] LABS: MEAN CORPUSCULAR HGB CONC 33.5 g/dl (32.0-36.5); MEAN CORPUSCULAR VOLUME 92.6 fl (80.0-96.0); PLATELET COUNT, AUTOMATED 250 10^3/uL (150-450); RED CELL DISTRIBUTION WIDTH 13.7 % (11.5-14.5); WHITE BLOOD COUNT 7.7 10^3/uL (4.0-10.0)
[2017-09-16 12:35] LABS: ANION GAP 6 MEQ/L (8-16); BLOOD UREA NITROGEN 18 MG/DL (7-18); CALCIUM LEVEL 9.1 MG/DL (8.8-10.2); CARBON DIOXIDE LEVEL 30 MEQ/L (21-32); CHLORIDE LEVEL 105 MEQ/L (98-107); CREATININE FOR GFR 0.88 MG/DL (0.70-1.30); GLOMERULAR FILTRATION RATE > 60.0 (>49); GLUCOSE, FASTING 86 MG/DL (80-110); POTASSIUM SERUM 4.6 MEQ/L (3.5-5.1); SODIUM LEVEL 141 MEQ/L (136-145)
[2017-09-16] MEDS: LR 1,000 ML IV (12:35)
[2017-09-16] MEDS: HEPARIN SOD (PORCINE) 5000 UNITS/ML VIAL As Ordered ×2 (19:21→19:41)
[2017-09-16] MEDS ORDERED: fentaNYL 250 MCG/5 ML INJECTION (J3010) As Ordered (19:27)
[2017-09-16] MEDS ORDERED: MIDAZOLAM INJ 2 MG/2 ML VIAL (J2250) As Ordered (19:27)
[2017-09-16] MEDS ORDERED: ROCURONIUM BROMIDE 50 MG/5 ML VIAL As Ordered ×2 (19:27→19:35)
[2017-09-16] MEDS ORDERED: ONDANSETRON 4MG/2ML VIAL (J2405) As Ordered (19:27)
[2017-09-16] MEDS ORDERED: dexameTHASONE 4 MG/ML 1ML VIAL (J1100) As Ordered (19:27)
[2017-09-16] MEDS ORDERED: PROPOFOL 200 MG/20 ML VIAL As Ordered (19:27)
[2017-09-16] MEDS ORDERED: LIDOCAINE 2% INJ 100 MG/5 ML SDV (FOR ANES.) As Ordered (19:27)
[2017-09-16] MEDS ORDERED: HEPARIN SOD (PORCINE) 5000 UNITS/ML VIAL As Ordered (19:35)
[2017-09-16] MEDS: ISOVUE-300 61% 50ML VIAL (Q9967) As Ordered (20:01)
[2017-09-16] MEDS ORDERED: PROTAMINE SULF INJ 50 MG/5 ML VIAL (J2720) As Ordered (20:44)
[2017-09-16] MEDS ORDERED: NEOSTIGMINE 10 MG/10 ML VIAL (J2710) As Ordered (20:46)
[2017-09-16] MEDS ORDERED: GLYCOPYRROLATE INJ 0.2 MG/ML 2 ML VIAL As Ordered (20:46)
[2017-09-16] MEDS ORDERED: MOM 30ML SUSPENSION UDC PO (21:15)
[2017-09-16] MEDS ORDERED: BISACODYL 10 MG SUPP PR (21:15)
[2017-09-16 22:24] LABS: ANION GAP 7 MEQ/L (8-16); BASO % 0.2 % (0.0-1.0); BLOOD UREA NITROGEN 16 MG/DL (7-18); CALCIUM LEVEL 8.2 MG/DL (8.8-10.2); CARBON DIOXIDE LEVEL 24 MEQ/L (21-32); CHLORIDE LEVEL 108 MEQ/L (98-107); CREATININE FOR GFR 1.02 MG/DL (0.70-1.30); EOS # 0.1 10^3/uL (0.0-0.50); EOS % 0.6 % (0.0-3.0); GLOMERULAR FILTRATION RATE > 60.0 (>49); GLUCOSE, FASTING 117 MG/DL (80-110); IMMATURE GRANULOCYTE # 0.1 10^3/uL (0-0); IMMATURE GRANULOCYTE % 0.7 % (0-0); LYMPH # 1.2 10^3/uL (1.5-4.5); LYMPH % 9.6 % (24.0-44.0); MEAN CORPUSCULAR HEMOGLOBIN 30.8 pg (27.0-33.0); MEAN CORPUSCULAR HGB CONC 33.4 g/dl (32.0-36.5); MEAN CORPUSCULAR VOLUME 92.2 fl (80.0-96.0); MONO # 0.4 10^3/uL (0.0-0.8); MONO % 2.9 % (0.0-5.0); NEUTROPHILS # 10.8 10^3/uL (1.8-7.7); PLATELET COUNT, AUTOMATED 216 10^3/uL (150-450); POTASSIUM SERUM 4.1 MEQ/L (3.5-5.1); RED CELL DISTRIBUTION WIDTH 13.9 % (11.5-14.5); SODIUM LEVEL 139 MEQ/L (136-145); WHITE BLOOD COUNT 12.6 10^3/uL (4.0-10.0)
[2017-09-16] MEDS: D5W/0.45% SODIUM CHLORIDE 1,000 ML IV (22:47)
[2017-09-17] MEDS: ACETAMINOPHEN TAB 650MG DOSE (2X325MG) PO (00:34)
[2017-09-17] MEDS: DOCUSATE SODIUM 100 MG CAP PO (08:11)
[2017-09-17] MEDS: SENOKOT S TAB PO (08:11)
[2017-09-17] MEDS ORDERED: METOPROLOL SUCC *XL* 25MG TAB (TopROL *XL*) PO (09:00)
[2017-09-17] MEDS ORDERED: SIMVASTATIN 20 MG TAB PO (21:00)
[2017-09-17] MEDS ORDERED: FINASTERIDE 5 MG TAB PO (21:00)
[2017-09-17] MEDS ORDERED: TAMSULOSIN 0.4 MG CAP PO (21:00)
== END 2017-09-17 10:10 | disposition home or self-care (01) | DRG 173 ==
LOC: M OR 11:47 → M PCU 21:52
PROC: 04VJ3DZ Restriction of Left External Iliac Artery with Intraluminal Device, Percutaneous Approach (ICD-10-PCS; principal; 2017-09-16 13:45)
DX: T82.330A Leakage of aortic (bifurcation) graft (replacement), initial encounter (principal); I10 Essential (primary) hypertension; Z79.899 Other long term (current) drug therapy; E78.00 Pure hypercholesterolemia, unspecified; Z87.891 Personal history of nicotine dependence; Y82.9 Unspecified medical devices associated with adverse incidents

== ENCOUNTER → 2017-10-01 | Outpatient (CLI) | payer OTHER | LOC: M RAD 09:01 | DX: I71.4 Abdominal aortic aneurysm, without rupture (principal) ==

== ENCOUNTER → 2017-10-06 | Outpatient (CLI) | payer OTHER | LOC: M RAD 08:45 | DX: I71.4 Abdominal aortic aneurysm, without rupture (principal) | CPT/HCPCS: 76775 ==

== ENCOUNTER → 2018-02-10 | Outpatient (CLI) | payer OTHER | LOC: M WUC 11:45 | DX: R93.7 Abnormal findings on diagnostic imaging of other parts of musculoskeletal system (principal) | CPT/HCPCS: 73660 ==

== ENCOUNTER → 2018-05-03 | Outpatient (CLI) | payer OTHER | LOC: M RAD 07:56 | DX: I71.4 Abdominal aortic aneurysm, without rupture (principal) | CPT/HCPCS: 76775 ==

== ENCOUNTER → 2018-10-10 | Outpatient (REF) | payer OTHER ==
[~2018-10-10] MED LIST changes: -ACETAMINOPHEN 325 MG TAB As Ordered ONE; +FLOM0.4C39 PO; -FLOM5CAP PO; -HEPARIN 1,000 UNITS/ML 10ML VIAL (FOR RADIOLOGY& DIALYSIS ONLY) As Ordered ONE; -ISOVUE-300 61% 50ML VIAL (Q9967) As Ordered ONE; -PROTAMINE SULF INJ 50 MG/5 ML VIAL (J2720) As Ordered ONE
[2018-10-10 13:43] LABS: APPEARANCE, URINE CLEAR (CLEAR); BACTERIA, URINE AUTO 1+ (NEGATIVE); BILIRUBIN, URINE AUTO NEGATIVE (NEGATIVE); BLOOD, URINE BLOOD NEGATIVE (NEGATIVE); COLOR, URINE YELLOW (YELLOW); GLUCOSE, URINE (UA) AUTO NEGATIVE (NEGATIVE); KETONE, URINE AUTO NEGATIVE (NEGATIVE); LEUKOCYTE ESTERASE, URINE AUTO NEGATIVE (NEGATIVE); MUCUS, URINE SMALL (NEGATIVE); NITRITE, URINE AUTO NEGATIVE (NEGATIVE); PROTEIN, URINE AUTO 1+ mg/dL (NEGATIVE); RBC, URINE AUTO 0 /HPF (0-3); SQUAMOUS EPITHELIAL CELL UR AU 0 /HPF (0-6); UROBILINOGEN, URINE AUTO 0.2 mg/dL (0.0-2.0); WBC, URINE AUTO 0 /HPF (0-3)
== END ==
LOC: M SMT 13:10
PROVIDERS: ATTEND Nurse Practitioner Women's Health
DX: R31.29 Other microscopic hematuria (principal)

== ENCOUNTER → 2018-10-21 | Outpatient (CLI) | payer OTHER ==
[2018-10-21 08:22] LABS: HEMATOCRIT 44.2 % (42.0-52.0); HEMOGLOBIN 14.8 g/dl (13.5-17.5); MEAN CORPUSCULAR HEMOGLOBIN 31.2 pg (27.0-33.0); MEAN CORPUSCULAR HGB CONC 33.5 g/dl (32.0-36.5); MEAN CORPUSCULAR VOLUME 93.2 fl (80.0-96.0); PLATELET COUNT, AUTOMATED 272 10^3/uL (150-450); RED BLOOD COUNT 4.74 10^6/uL (4.30-6.10); WHITE BLOOD COUNT 6.4 10^3/uL (4.0-10.0)
--- NOTE | 2018-10-21 08:38 | REP ---
Chest two views HISTORY: Hypertension Comparison: 04/15/2017 The lungs are clear. The heart is normal in size. The pulmonary vasculature is normal in appearance. The bony structure is intact. IMPRESSION: No acute disease. Electronically Signed by Sachin Seo MD 10/21/2018 08:30 A
[2018-10-21 08:57] LABS: ALBUMIN 3.6 GM/DL (3.2-5.2); ALT/SGPT 35 U/L (12-78); BILIRUBIN,TOTAL 0.9 MG/DL (0.2-1.0); BLOOD UREA NITROGEN 13 MG/DL (7-18); CALCIUM LEVEL 8.8 MG/DL (8.8-10.2); CARBON DIOXIDE LEVEL 24 MEQ/L (21-32); CHLORIDE LEVEL 108 MEQ/L (98-107); CHOLESTEROL LEVEL 212 MG/DL (<200); CHOLESTEROL RISK RATIO 5.435 (<5); CREATININE FOR GFR 0.87 MG/DL (0.70-1.30); GLOMERULAR FILTRATION RATE > 60.0 (>49); GLUCOSE, FASTING 101 MG/DL (70-100); HDL CHOLESTEROL 39 MG/DL (>40); NON-HDL-C 173 MG/DL; POTASSIUM SERUM 4.6 MEQ/L (3.5-5.1); PROSTATIC SPECIFIC AG MONITOR 0.32 NG/ML (< 4.00); SODIUM LEVEL 140 MEQ/L (136-145); TOTAL PROTEIN 6.8 GM/DL (6.4-8.2); TRIGLYCERIDES LEVEL 512 MG/DL (<150)
[2018-10-21 09:40] LABS: HEMOGLOBIN A1c 6.5 %
[2018-10-21 09:45] LABS: TESTOSTERONE 447 NG/DL (241-827)
--- NOTE | 2018-10-21 23:56 | ECGEPIP ---
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
== END ==
LOC: M LAB 07:32
PROVIDERS: ATTEND Family Medicine
DX: I10 Essential (primary) hypertension (principal); R53.83 Other fatigue; E11.9 Type 2 diabetes mellitus without complications

== ENCOUNTER → 2018-11-10 | Outpatient (REF) | payer OTHER ==
[2018-11-10 13:26] LABS: APPEARANCE, URINE CLEAR (CLEAR); BACTERIA, URINE AUTO NEGATIVE (NEGATIVE); BILIRUBIN, URINE AUTO NEGATIVE (NEGATIVE); BLOOD, URINE BLOOD NEGATIVE (NEGATIVE); COLOR, URINE YELLOW (YELLOW); GLUCOSE, URINE (UA) AUTO NEGATIVE (NEGATIVE); KETONE, URINE AUTO NEGATIVE (NEGATIVE); LEUKOCYTE ESTERASE, URINE AUTO NEGATIVE (NEGATIVE); NITRITE, URINE AUTO NEGATIVE (NEGATIVE); PROTEIN, URINE AUTO NEGATIVE (NEGATIVE); RBC, URINE AUTO 1 /HPF (0-3); SPECIFIC GRAVITY URINE AUTO 1.009 (1.002-1.035); SQUAMOUS EPITHELIAL CELL UR AU 0 /HPF (0-6); UROBILINOGEN, URINE AUTO 0.2 mg/dL (0.0-2.0); WBC, URINE AUTO 0 /HPF (0-3)
== END ==
LOC: M SMT 12:53
PROVIDERS: ATTEND Nurse Practitioner Women's Health
DX: R31.29 Other microscopic hematuria (principal)

== ENCOUNTER → 2018-12-08 | Outpatient (CLI) | payer OTHER ==
--- NOTE | 2018-12-08 17:14 | REP ---
Clinical: Status post abdominal aortic repair. Technique: Real time beverly scale and color Doppler evaluation using curved array transducer. Comparison: 05/03/2018. Findings: There is evidence for abdominal aortic aneurysm repair with stents extending from the mid/distal aorta into the bilateral common iliac arteries. There is no obvious evidence for stent leak. Aneurysm remains stable at approximately 7.0 x 5.5 cm maximal AP/transverse diameter. Proximal aorta 2.5 x 2.9 cm Aorta (@ renal arteries) 3.2 x 3.8 cm Mid aorta 3.8 x 5.0 cm Distal aorta 6.0 x 5.5 cm Right common iliac artery 2.7 x 2.3 cm Left common iliac artery 3.1 x 2.2 cm Impression: Stable appearance to the repaired abdominal aortic aneurysm. Electronically Signed by Grant Solis MD 12/08/2018 05:05 P
== END ==
LOC: M RAD 07:41
PROVIDERS: ATTEND Surgery Vascular Surgery
DX: I71.4 Abdominal aortic aneurysm, without rupture (principal)

== ENCOUNTER → 2019-06-07 | Outpatient (REF) | payer OTHER ==
[~2019-06-07] MED LIST changes: +DIPH2.5T15 PO; +HYDR-3715 PO; +LISI-672 PO; -LISI20TA PO; +LISI20TA19 PO; +MULTCAP PO; +NEXI20CA PO; -NORCOTAB PO; +TRIA37.53 PO
== END ==
LOC: M LAB REF 08:53
PROVIDERS: ATTEND Internal Medicine Gastroenterology
DX: R19.7 Diarrhea, unspecified (principal); R12 Heartburn

== ENCOUNTER 2019-06-21 09:28 | Day surgery (SDC) | payer OTHER ==
[~2019-06-21] VITALS: Ht 180.3 cm; Wt 122.0 kg
[~2019-06-21 09:28] MED LIST changes: +NS 1,000 ML IV ONE
[2019-06-21] MEDS ORDERED: PROPOFOL 200 MG/20 ML VIAL As Ordered ONE ×2 (11:19→11:21)
[2019-06-21] MEDS ORDERED: LIDOCAINE 2% INJ 100 MG/5 ML SDV (FOR ANES.) As Ordered ONE (11:19)
--- NOTE | 2019-06-21 11:34 | ROOR ---
Patient Name: Glenn Robertson Procedure Date: 06/21/2019 11:16 AM Date of : 1955 Age: 63 Room: [facility] Gender: Male Note Status: Finalized Procedure: Upper Endoscopy + Biopsies Indications: Heartburn, Exclusion of Prieto's esophagus Providers: Larry Hein MD Referring MD: KARON FLORES MD Requesting Provider: Medicines: Monitored Anesthesia Care Complications: No immediate complications. Procedure: Pre-Anesthesia Assessment: - The heart rate, respiratory rate, oxygen saturations, blood pressure, adequacy of pulmonary ventilation, and response to care were monitored throughout the procedure. The Endoscope was introduced through the mouth, and advanced to the second part of duodenum. The upper GI endoscopy was accomplished without difficulty. The patient tolerated the procedure well. Findings: The Z-line was irregular and was found 40 cm from the incisors. Multiple biopsies were obtained with cold forceps for evaluation to rule out Prieto's Esophagus randomly at the gastroesophageal junction. A small hiatal hernia was present. No other significant abnormalities were identified in a careful examination of the stomach. The exam of the duodenum was otherwise normal. Biopsies for histology were taken with a cold forceps in the first portion of the duodenum for evaluation of celiac disease. The exam was otherwise without abnormality. Impression: - Z-line irregular, 40 cm from the incisors. - Small hiatal hernia. - The examination was otherwise normal. - Multiple biopsies were obtained at the gastroesophageal junction. - Biopsies were taken with a cold forceps for evaluation of celiac disease. - The examination was otherwise normal. Recommendation: - Patient has a contact number available for emergencies. The signs and symptoms of potential delayed complications were discussed with the patient. Return to normal activities tomorrow. Written discharge instructions were provided to the patient. - High fiber diet. - Discharge patient to home. - Follow an antireflux regimen. - Continue present medications. - Await pathology results. - Telephone GI clinic for pathology results in 1 week. - Return to referring physician. - The findings and recommendations were discussed with the patient's family. Larry Hein MD Larry Hein MD 06/21/2019 11:34:27 AM Electronically signed by Larry Hein MD Number of Addenda: 0 Note Initiated On: 06/21/2019 11:16 AM Estimated Blood Loss: Estimated blood loss: none.
--- NOTE | 2019-06-21 11:53 | ROOR ---
Patient Name: Glenn Robertson Procedure Date: 06/21/2019 11:17 AM Date of : 1955 Age: 63 Room: [facility] Gender: Male Note Status: Finalized Procedure: Total Colonoscopy to Cecum + Bx. To r/o Microscopic Colitis Indications: Clinically significant diarrhea of unexplained origin Providers: Larry Hein MD Referring MD: KARON FLORES MD Requesting Provider: Medicines: Monitored Anesthesia Care Complications: No immediate complications. Procedure: Pre-Anesthesia Assessment: - The heart rate, respiratory rate, oxygen saturations, blood pressure, adequacy of pulmonary ventilation, and response to care were monitored throughout the procedure. The Colonoscope was introduced through the anus and advanced to the cecum, identified by appendiceal orifice and ileocecal valve. The colonoscopy was performed without difficulty. The patient tolerated the procedure well. The quality of the bowel preparation was excellent. Findings: The perianal and digital rectal examinations were normal. Non-bleeding internal hemorrhoids were found during retroflexion. The hemorrhoids were small and Grade I (internal hemorrhoids that do not prolapse). No other significant abnormalities were identified in a careful examination of the remainder of the colon. The exam was otherwise without abnormality. Biopsies for histology were taken with a cold forceps from the ascending colon, transverse colon and descending colon for evaluation of microscopic colitis. The exam was otherwise without abnormality. Impression: - Non-bleeding internal hemorrhoids. - The examination was otherwise normal. - The examination was otherwise normal. - Biopsies were taken with a cold forceps from the ascending colon, transverse colon and descending colon for evaluation of microscopic colitis. - The exam was otherwise normal to the cecum. Recommendation: - Patient has a contact number available for emergencies. The signs and symptoms of potential delayed complications were discussed with the patient. Return to normal activities tomorrow. Written discharge instructions were provided to the patient. - High fiber diet. - Discharge patient to home. - Continue present medications. - Await pathology results. - Telephone GI clinic for pathology results in 1 week. - Repeat colonoscopy in 10 years for screening purposes. - Return to referring physician. - The findings and recommendations were discussed with the patient's family. Larry Hein MD Larry Hein MD 06/21/2019 11:52:27 AM Electronically signed by Larry Hein MD Number of Addenda: 0 Note Initiated On: 06/21/2019 11:17 AM Estimated Blood Loss: Estimated blood loss: none.
[2019-06-21 12:15] VITALS: BP 114/82
== END 2019-06-21 12:24 | disposition home or self-care (01) ==
LOC: M OPP 09:28
PROVIDERS: ATTEND Internal Medicine Gastroenterology
DX: K64.0 First degree hemorrhoids (principal); R19.7 Diarrhea, unspecified; K22.8 Other specified diseases of esophagus; K44.9 Diaphragmatic hernia without obstruction or gangrene; R12 Heartburn; F17.210 Nicotine dependence, cigarettes, uncomplicated; Z88.0 Allergy status to penicillin; Z95.0 Presence of cardiac pacemaker; Z95.5 Presence of coronary angioplasty implant and graft

== ENCOUNTER → 2019-10-10 | Outpatient (CLI) | payer OTHER ==
[~2019-10-10] MED LIST changes: -NS 1,000 ML IV ONE; -SIMV20TA2 PO; +SIMV20TA22 PO
[2019-10-10 09:25] LABS: HEMATOCRIT 47.5 % (42.0-52.0); HEMOGLOBIN 15.2 g/dl (13.5-17.5); MEAN CORPUSCULAR HEMOGLOBIN 30.6 pg (27.0-33.0); MEAN CORPUSCULAR VOLUME 95.6 fl (80.0-96.0); PLATELET COUNT, AUTOMATED 252 10^3/uL (150-450); RED BLOOD COUNT 4.97 10^6/uL (4.30-6.10); WHITE BLOOD COUNT 6.8 10^3/uL (4.0-10.0)
[2019-10-10 09:41] LABS: HEMOGLOBIN A1c 6.4 %
[2019-10-10 10:00] LABS: INR 0.94; PROTHROMBIN TIME 12.3 SECONDS (11.8-14.0)
[2019-10-10 10:24] LABS: ALBUMIN 3.8 GM/DL (3.2-5.2); ALT/SGPT 35 U/L (12-78); BILIRUBIN,TOTAL 0.7 MG/DL (0.2-1.0); BLOOD UREA NITROGEN 14 MG/DL (7-18); CALCIUM LEVEL 8.9 MG/DL (8.8-10.2); CARBON DIOXIDE LEVEL 21 MEQ/L (21-32); CHLORIDE LEVEL 109 MEQ/L (98-107); CHOLESTEROL LEVEL 193 MG/DL (<200); CHOLESTEROL RISK RATIO 4.386 (<5); CREATININE FOR GFR 0.93 MG/DL (0.70-1.30); GLOMERULAR FILTRATION RATE > 60.0 (>49); GLUCOSE, FASTING 94 MG/DL (70-100); HDL CHOLESTEROL 44 MG/DL (>40); LDL CHOLESTEROL 81 MG/DL (<100); NON-HDL-C 149 MG/DL; POTASSIUM SERUM 4.3 MEQ/L (3.5-5.1); SODIUM LEVEL 141 MEQ/L (136-145); TOTAL PROTEIN 7.3 GM/DL (6.4-8.2); TRIGLYCERIDES LEVEL 338 MG/DL (<150)
--- NOTE | 2019-10-10 12:16 | ECGEPIP ---
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 Electronically Signed on 10-10-2019 12:16:18 EST by Lorenzo Erickson
--- NOTE | 2019-10-10 18:37 | REP ---
Chest x-ray: Two views. History: Hypertension. Comparison chest x-ray: October 21, 2018. Findings: The lungs are well inflated and free of infiltrate. Pleural angles are sharp. Heart size is normal. Pulmonary vasculature is not increased. There are degenerative changes in the thoracic spine. Impression: No acute disease. Electronically Signed by Hilario Strauss MD 10/10/2019 06:29 P
== END ==
LOC: M LAB 08:30
PROVIDERS: ATTEND Family Medicine
DX: Z01.818 Encounter for other preprocedural examination (principal); I10 Essential (primary) hypertension; E11.9 Type 2 diabetes mellitus without complications

== ENCOUNTER → 2021-01-10 | Outpatient (CLI) | payer MEDICARE ==
[~2021-01-10] MED LIST changes: -LISI-672 PO; -LISI20TA19 PO; +LISI20TA35 PO; +LISI30TA4 PO
--- NOTE | 2021-01-10 11:57 | REP ---
INDICATION: ATHSCL [place] ARTERIES MISSY LEG W/ PAD, HX EVAR. COMPARISON: None. FINDINGS: Right lower extremity: Brachial peak systole: 160 mmHg Dorsalis pedis peak systole: 140 mmHg NECK BAND OPERATOR peak systole: 155 mmHg ANDI: 0.9 DIAMOND WHEEL MOLDER: 107 velocity, triphasic phasicity Profunda: 74 velocity, triphasic phasicity SFA prox: 68 velocity, triphasic phasicity SFA mid: 90.1 velocity, triphasic phasicity SFA dist: 70.8 velocity, biphasic phasicity Pop: 65.9 velocity, triphasic phasicity KIMBERLY prox: 69.2 velocity, triphasic phasicity Tib/P tr: 50.7 velocity, triphasic phasicity NECK BAND OPERATOR pr: 65.9 velocity, triphasic phasicity NECK BAND OPERATOR dst: 76.8 velocity, triphasic phasicity KIMBERLY dst: 69.7 velocity, triphasic phasicity Left lower extremity: Brachial peak systole: 155 mmHg Dorsalis pedis peak systole: 1 6 mmHg NECK BAND OPERATOR peak systole: The 170 mmHg ANDI: 0.9 DIAMOND WHEEL MOLDER: 53.6 velocity, triphasic phasicity Profunda: 54.3 velocity, triphasic phasicity SFA prox: 58.2 velocity, triphasic phasicity SFA mid: 91.6 velocity, biphasic phasicity SFA dist: 80.1 velocity, triphasic phasicity Pop: 54.4 velocity, or triphasic phasicity KIMBERLY prox: 37 point some velocity, but triphasic phasicity Tib/P tr: 60.5 velocity, triphasic phasicity NECK BAND OPERATOR pr: 58.5 velocity, triphasic phasicity NECK BAND OPERATOR dst: 76.8 velocity, triphasic phasicity KIMBERLY dst: 61.6 velocity, triphasic phasicity IMPRESSION: There is mild atheromatous plaque bilaterally. There are triphasic waveforms throughout the lower extremities bilaterally. No stenoses are identified. <Electronically signed by Roberto Jeffery > 01/10/21 [id number]
== END ==
LOC: M RAD 09:28
PROVIDERS: ATTEND Physician Assistant
DX: I70.213 Atherosclerosis of native arteries of extremities with intermittent claudication, bilateral legs (principal); I71.4 Abdominal aortic aneurysm, without rupture

== ENCOUNTER → 2021-01-13 | Outpatient (CLI) | payer MEDICARE ==
[2021-01-13 12:38] LABS: BLOOD UREA NITROGEN 15 MG/DL (7-18); CREATININE FOR GFR 0.79 MG/DL (0.70-1.30); GLOMERULAR FILTRATION RATE > 60.0 (>49)
== END ==
LOC: M LAB 11:52
PROVIDERS: ATTEND Physician Assistant
DX: I71.4 Abdominal aortic aneurysm, without rupture (principal)

== ENCOUNTER → 2021-01-15 | Outpatient (CLI) | payer MEDICARE, OTHER ==
--- NOTE | 2021-01-15 15:12 | REP ---
INDICATION: AAA, PAD, HX EVAR. COMPARISON: 07/29/2017 the latest prior TECHNIQUE: The examination was performed without intravenous or oral bowel preparatory contrast administration. FINDINGS: The lung bases are clear. Minimal bibasilar subsegmental atelectatic changes are present. Limited evaluation of the solid intra-abdominal organs and gallbladder show no gross abnormalities or significant changes. Limited evaluation of the pancreas and adrenal glands show no gross abnormalities or significant changes from the prior exam. Limited evaluation of the kidneys shows a 5 mm sized nonobstructing left nephrolith status quo. Right-sided renovascular calcifications are again noted. In the inferior pole of the left kidney there is a small area of decreased density which measures approximately 1.6 cm. It is slightly irregular and represents a change from the prior exam. Limited evaluation of the abdominal aorta shows previous aortoiliac stent graft placement. The large [place] aortic density which measured 8.5 cm seen on the prior exam has markedly decreased in size. Today this measures approximately 4.7 cm and likely represents an old thrombus. The abdominal aorta and para-regions are difficult to evaluate without the administration of intravenous contrast. There is evidence of bilateral common femoral arterial ectasia left greater than right status quo. Limited evaluation of the bowel loops and the mesenteries show no gross abnormalities. There is no evidence of free fluid or free air. 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 The imaged osseous structures appear stable. IMPRESSION: 1. Vascular changes and exam limitations as described above. 2. Essentially unchanged nonobstructing left nephrolith. 3. New focal area of decreased density in the inferior pole of the left kidney difficult to evaluate on this exam. Ultrasonography is recommended for further evaluation. 4. Other findings as described above. <Electronically signed by Nilesh Lomeli > 01/15/21 [id number]
== END ==
LOC: M RAD 12:59
PROVIDERS: ATTEND Physician Assistant
DX: I71.4 Abdominal aortic aneurysm, without rupture (principal); I70.203 Unspecified atherosclerosis of native arteries of extremities, bilateral legs; Z95.828 Presence of other vascular implants and grafts; N20.0 Calculus of kidney

== ENCOUNTER → 2021-02-20 | Outpatient (CLI) | payer MEDICARE ==
--- NOTE | 2021-02-20 10:53 | REP ---
INDICATION: RENAL VASCULAR HYPERTENSION, CYST,HEMATURIA. COMPARISON: Comparison CT study January 15, 2021. Comparison renal sonography December 22, 2016.. TECHNIQUE: Urinary tract sonography. FINDINGS: Scanning at the level of the urinary bladder shows no abnormality. Renal cortical echogenicity pattern is normal bilaterally and contours are smooth. There is no evidence of hydronephrosis on either side. No renal mass lesion is observed. There is a 1.5 x 1.4 x 1.1 cm cyst in the lower pole left kidney which is felt to be unchanged from the December 22, 2016 prior sonography and which is felt to correlate with the low-density area in the lower pole of the left kidney on more recent CT study. There is also a 0.7 cm cyst in the lower pole the right kidney. No calculus is visible by sonography.. The right kidney measures 11.9 x 5.5 x 5.7 cm. Left renal dimensions are 12.6 x 6.8 x 5.9 cm. IMPRESSION: There is a small cyst in the lower pole of each kidney. Left lower pole cyst is unchanged from comparison sonography 2017 and correlates with the recent CT study.. <Electronically signed by Burak Strauss > 02/20/21 [id number]
== END ==
LOC: M RAD 09:32
PROVIDERS: ATTEND Internal Medicine Nephrology
DX: I15.0 Renovascular hypertension (principal); N28.1 Cyst of kidney, acquired; R31.9 Hematuria, unspecified

== ENCOUNTER → 2021-03-24 | Outpatient (REF) | payer MEDICARE | LOC: M LAB REF 18:36 | PROVIDERS: ATTEND Plastic Surgery Surgery of the Hand | DX: L82.0 Inflamed seborrheic keratosis (principal) ==

== ENCOUNTER → 2021-05-22 | Outpatient (CLI) | payer MEDICARE ==
[2021-05-22 07:42] LABS: HEMATOCRIT 46.6 % (42.0-52.0); HEMOGLOBIN 15.5 g/dl (13.5-17.5); MEAN CORPUSCULAR HEMOGLOBIN 31.4 pg (27.0-33.0); MEAN CORPUSCULAR HGB CONC 33.3 g/dl (32.0-36.5); MEAN CORPUSCULAR VOLUME 94.3 fl (80.0-96.0); PLATELET COUNT, AUTOMATED 239 10^3/uL (150-450); RED BLOOD COUNT 4.94 10^6/uL (4.30-6.10); WHITE BLOOD COUNT 7.3 10^3/uL (4.0-10.0)
[2021-05-22 07:59] LABS: HEMOGLOBIN A1c 6.2 %
[2021-05-22 08:20] LABS: ALBUMIN 3.6 GM/DL (3.2-5.2); ALT/SGPT 39 U/L (12-78); BILIRUBIN,TOTAL 0.9 MG/DL (0.2-1.0); BLOOD UREA NITROGEN 11 MG/DL (7-18); CARBON DIOXIDE LEVEL 27 MEQ/L (21-32); CHLORIDE LEVEL 111 MEQ/L (98-107); CHOLESTEROL LEVEL 188 MG/DL (<200); CHOLESTEROL RISK RATIO 4.086 (<5); CREATININE FOR GFR 0.84 MG/DL (0.70-1.30); GLOMERULAR FILTRATION RATE > 60.0 (>49); GLUCOSE, FASTING 99 MG/DL (70-100); HDL CHOLESTEROL 46 MG/DL (>40); LDL CHOLESTEROL 66 MG/DL (<100); NON-HDL-C 142 MG/DL; POTASSIUM SERUM 4.4 MEQ/L (3.5-5.1); PROSTATIC SPECIFIC AG MONITOR 0.27 NG/ML (< 4.00); SODIUM LEVEL 141 MEQ/L (136-145); TOTAL PROTEIN 6.9 GM/DL (6.4-8.2); TRIGLYCERIDES LEVEL 381 MG/DL (<150)
[2021-05-22 11:32] LABS: TESTOSTERONE 491 NG/DL (241-827)
== END ==
LOC: M LAB 07:14
PROVIDERS: ATTEND Family Medicine
DX: I10 Essential (primary) hypertension (principal); R53.83 Other fatigue; E03.9 Hypothyroidism, unspecified

== ENCOUNTER → 2022-01-05 | Outpatient (CLI) | payer MEDICARE ==
[2022-01-05 07:56] LABS: HEMATOCRIT 45.2 % (42.0-52.0); HEMOGLOBIN 15.1 g/dl (13.5-17.5); MEAN CORPUSCULAR HGB CONC 33.4 g/dl (32.0-36.5); MEAN CORPUSCULAR VOLUME 92.8 fl (80.0-96.0); PLATELET COUNT, AUTOMATED 237 10^3/uL (150-450); RED BLOOD COUNT 4.87 10^6/uL (4.30-6.10); WHITE BLOOD COUNT 8.3 10^3/uL (4.0-10.0)
[2022-01-05 08:23] LABS: HEMOGLOBIN A1c 6.3 %
[2022-01-05 08:28] LABS: ALBUMIN 3.6 GM/DL (3.2-5.2); ALT/SGPT 43 U/L (12-78); BILIRUBIN,TOTAL 0.9 MG/DL (0.2-1.0); BLOOD UREA NITROGEN 13 MG/DL (7-18); CALCIUM LEVEL 9.1 MG/DL (8.8-10.2); CARBON DIOXIDE LEVEL 25 MEQ/L (21-32); CHLORIDE LEVEL 111 MEQ/L (98-107); CHOLESTEROL LEVEL 211 MG/DL (<200); CHOLESTEROL RISK RATIO 4.586 (<5); GLOMERULAR FILTRATION RATE > 60.0 (>49); GLUCOSE, FASTING 114 MG/DL (70-100); HDL CHOLESTEROL 46 MG/DL (>40); NON-HDL-C 165 MG/DL; POTASSIUM SERUM 4.4 MEQ/L (3.5-5.1); PROSTATIC SPECIFIC AG MONITOR 0.24 NG/ML (< 4.00); SODIUM LEVEL 141 MEQ/L (136-145); TOTAL PROTEIN 7.1 GM/DL (6.4-8.2); TRIGLYCERIDES LEVEL 494 MG/DL (<150)
[2022-01-05 10:25] LABS: TESTOSTERONE 454 NG/DL (241-827)
== END ==
LOC: M LAB 07:26
PROVIDERS: ATTEND Family Medicine
DX: R53.83 Other fatigue (principal); I10 Essential (primary) hypertension; E03.9 Hypothyroidism, unspecified; Z79.899 Other long term (current) drug therapy

== ENCOUNTER → 2024-11-27 | Outpatient (CLI) | payer MEDICARE ==
[~2024-11-27] MED LIST changes: +DIPH1TAB81 PO; -DIPH2.5T15 PO; +FINA-48 PO; -PROS5TAB PO; -TRIA37.53 PO; +TRIA37.577 PO
[2024-11-27 08:54] LABS: HEMATOCRIT 45.6 % (42.0-52.0); MEAN CORPUSCULAR HEMOGLOBIN 31.3 pg (27.0-33.0); MEAN CORPUSCULAR HGB CONC 32.9 g/dl (32.0-36.5); PLATELET COUNT, AUTOMATED 244 10^3/uL (150-450); WHITE BLOOD COUNT 6.7 10^3/uL (4.0-10.0)
[2024-11-27 09:19] LABS: PROSTATIC SPECIFIC AG MONITOR 0.23 NG/ML (< 4.00)
[2024-11-27 09:22] LABS: ALBUMIN 3.7 G/DL (3.2-5.2); ALKALINE PHOSPHATASE 80 U/L (40-129); ALT/SGPT 33 U/L (7.0-40); AST/SGOT 29 U/L (<34); BILIRUBIN,TOTAL 1.1 MG/DL (0.3-1.2); BLOOD UREA NITROGEN 11 MG/DL (9-23); CALCIUM LEVEL 9.2 MG/DL (8.3-10.6); CARBON DIOXIDE LEVEL 26 MMOL/L (20-31); CHLORIDE LEVEL 108 MMOL/L (98-107); CHOLESTEROL LEVEL 212 MG/DL (<200); CHOLESTEROL RISK RATIO 4.64 (<5); GLOMERULAR FILTRATION RATE > 60.0 (>49); GLUCOSE, FASTING 106 MG/DL (74-106); HDL CHOLESTEROL 45.6 MG/DL (>40); NON-HDL-C 166.4 MG/DL; POTASSIUM SERUM 4.5 MMOL/L (3.5-5.1); SODIUM LEVEL 143 MMOL/L (136-145); TOTAL PROTEIN 7.1 G/DL (5.7-8.2); TRIGLYCERIDES LEVEL 352 MG/DL (<150)
[2024-11-27 09:23] LABS: TESTOSTERONE 600 NG/DL (241-827); THYROID STIMULATING HORMONE 1.516 uIU/ML (0.55-4.78)
[2024-11-27 09:28] LABS: HEMOGLOBIN A1c 6.1 % (4.0-6.0)
== END ==
LOC: M LAB 08:03
PROVIDERS: ATTEND Family Medicine
DX: I10 Essential (primary) hypertension (principal); R53.83 Other fatigue; R97.20 Elevated prostate specific antigen [PSA]

== ENCOUNTER → 2024-12-26 | Outpatient (REF) | payer MEDICARE ==
[2024-12-26 17:58] LABS: CREATININE,RANDOM URINE 38.4 MG/DL
== END ==
LOC: M LAB REF 17:00
PROVIDERS: ATTEND Internal Medicine Nephrology
DX: N18.2 Chronic kidney disease, stage 2 (mild) (principal)

== ENCOUNTER → 2025-07-03 | Outpatient (CLI) | payer MEDICARE ==
[~2025-07-03] MED LIST changes: -FLOM0.4C39 PO; +TAMS-18 PO
== END ==
LOC: M RAD 14:53
PROVIDERS: ATTEND Student in an Organized Health Care Education/Training Program
DX: F17.210 Nicotine dependence, cigarettes, uncomplicated (principal)

== ENCOUNTER → 2025-07-09 | Outpatient (REF) | payer MEDICARE | LOC: M SFHCPLAZ 13:16 | PROVIDERS: ATTEND Student in an Organized Health Care Education/Training Program | DX: L98.9 Disorder of the skin and subcutaneous tissue, unspecified (principal) ==

== ENCOUNTER → 2025-07-27 | Outpatient (CLI) | payer MEDICARE ==
[2025-07-27 08:16] LABS: BASO # 0.0 10^3/uL (0.0-0.2); BASO % 0.5 % (0.0-1.0); EOS # 0.1 10^3/uL (0.0-0.5); EOS % 2.0 % (0.0-3.0); LYMPH # 1.7 10^3/uL (1.5-5.0); LYMPH % 26.8 % (24.0-44.0); MONO # 0.7 10^3/uL (0.0-0.8); MONO % 10.8 % (2.0-8.0); NEUTROPHILS # 3.8 10^3/uL (1.5-8.5); NEUTROPHILS % 59.6 % (36.0-66.0); PLATELET COUNT, AUTOMATED 224 10^3/uL (150-450)
[2025-07-27 08:37] LABS: ESTIMATED AVERAGE GLUCOSE 137.0 MG/DL (60-110)
[2025-07-27 08:42] LABS: ALT/SGPT 33 U/L (7.0-40); AST/SGOT 29 U/L (<34); CALCIUM LEVEL 9.5 MG/DL (8.3-10.6); CARBON DIOXIDE LEVEL 24 MMOL/L (20-31); CHLORIDE LEVEL 110 MMOL/L (98-107); CHOLESTEROL LEVEL 155 MG/DL (<200); CHOLESTEROL RISK RATIO 3.65 (<5); CREATININE FOR GFR 0.83 MG/DL (0.70-1.30); GLOMERULAR FILTRATION RATE > 90.0 (>49); LDL CHOLESTEROL 63.4 MG/DL (<100); NON-HDL-C 112.6 MG/DL; POTASSIUM SERUM 4.4 MMOL/L (3.5-5.1); SODIUM LEVEL 142 MMOL/L (136-145); TRIGLYCERIDES LEVEL 246 MG/DL (<150)
[2025-07-27 08:43] LABS: CREATININE, URINE 47.7 MG/DL
[2025-07-27 08:44] LABS: MALB URINE SIEMENS 158.0 MG/L; MAU/CREAT RATIO 331.2 MCG/MG (0.0-30.0)
== END ==
LOC: M LAB 07:05
PROVIDERS: ATTEND Student in an Organized Health Care Education/Training Program
DX: Z00.00 Encounter for general adult medical examination without abnormal findings (principal); E78.2 Mixed hyperlipidemia; R73.03 Prediabetes; R31.29 Other microscopic hematuria